=== PATIENT | female | born 1970 | race Caucasian/White ===

== ENCOUNTER 2016-05-02 16:36 | Emergency (ER) | payer OTHER ==
[~2016-05-02] VITALS: Ht 157.5 cm; Wt 75.0 kg
[2016-05-02 16:43] VITALS: Ht 157.5 cm; Wt 75.0 kg
[2016-05-02] MEDS ORDERED: ONDANSETRON (ODT) 4 MG TAB ODT STA (20:02)
[2016-05-02 20:27] LABS: URINE BLOOD (Dip) POC Negative (NEGATIVE)
[2016-05-02] MEDS ORDERED: FAMOTIDINE 20 MG TAB PO ONE (20:30)
[2016-05-02] MEDS ORDERED: HYDROCODONE/APAP (5/325) TAB PO ONE (20:30)
[2016-05-02 20:47] LABS: BASOPHILS % 0.3 % (0.0-2.0); EOSINOPHILS # 0.1 10^3/ul (0.0-0.5); EOSINOPHILS % 1.2 % (0.0-7.0); HEMATOCRIT 33.4 % (37.0-47.0); HEMOGLOBIN 11.1 g/dl (12.0-16.0); LYMPHOCYTES # 3.3 10^3/ul (0.8-2.9); LYMPHOCYTES % 27.7 % (15.0-51.0); MEAN CORPUSCULAR HEMOGLOBIN 27.6 pg (29.0-33.0); MEAN CORPUSCULAR HGB CONC 33.4 g/dl (32.0-37.0); MEAN CORPUSCULAR VOLUME 82.7 fl (82.0-101.0); MEAN PLATELET VOLUME 7.8 fl (7.4-10.4); MONOCYTE # 0.6 10^3/ul (0.3-0.9); MONOCYTES % 5.1 % (0.0-11.0); NEUTROPHIL # 7.9 10^3/ul (1.6-7.5); NEUTROPHILS % 65.7 % (39.0-77.0); PLATELET COUNT 306 10^3/UL (140-440); RED BLOOD COUNT 4.04 10^6/ul (4.20-5.40); RED CELL DISTRIBUTION WIDTH 13.5 % (11.5-14.5); UNCORRECTED WBC 11.9 10^3/ul (4.8-10.8); WHITE BLOOD COUNT 11.9 10^3/ul (4.8-10.8)
[2016-05-02 20:49] LABS: ALBUMIN 3.9 g/dl (3.3-4.9)
[2016-05-02 20:50] LABS: POTASSIUM 4.4 mmol/L (3.5-5.1)
[2016-05-02 20:52] LABS: ALBUMIN/GLOBULIN RATIO 1.14; BILIRUBIN,INDIRECT 0.1 mg/dl (0-1.1); BILIRUBIN,TOTAL 0.1 mg/dl (0.2-1.3); CREATININE 0.62 mg/dl (0.44-1.00); TOTAL PROTEIN 7.3 g/dl (6.1-8.1)
[2016-05-02 20:56] LABS: CONDITION 1
--- NOTE | 2016-05-02 21:02 | RADRPT ---
PROCEDURE: US Abdomen (right upper quadrant). CLINICAL INDICATION: Right upper quadrant abdomen pain. TECHNIQUE: Multiple real-time longitudinal and transverse images of the right upper quadrant of th e abdomen were acquired utilizing a curved array transducer. Images were reviewed on a high-resoluti on PACS workstation. COMPARISON: None FINDINGS: The liver is normal in size and echogenicity. There is no focal hepatic lesion. Color Doppler and pulsed Doppler sonography demonstrate normal a ntegrade flow in the portal vein. The gallbladder is normal with no stones or wall thickening. There is no pericholecystic fluid donato ection. The bile ducts are normal with the common bile duct measuring 3.4 mm in diameter. The visualized portions of the pancreas are unremarkable with obscuration of the tail of the pancrea s. No free fluid is present. The right kidney measures 10.4 cm. There is normal echogenicity of the right kidney. There is no perinephric fluid collection. No hydronephrosis, mass, or calculus is seen. IMPRESSION: 1. Unremarkable right upper quadrant abdomen ultrasound. RPTAT: QQ .Juni Bellamy MD, MD Date Time Electronically viewed and signed by .Juni Bellamy MD, on 05/02/2016 21:02 .R/
--- NOTE | 2016-05-02 22:37 | ERD ---
ER Documentation Chief Complaint Date/Time DATE: 05/02/16 TIME: 22:32 Chief Complaint ap with vomiting and diarrhea x 5 days HPI This is a 46-year-old female who presents to the emergency department today complaining of abdominal pain, vomiting and diarrhea for the past 5-7 days patient is also been complaining of headache and body aches. Denies any fevers or chills. ROS All systems reviewed and are negative except as per history of present illness. Medications Home Meds Active Scripts Loperamide Hcl* (Imodium*) 2 Mg Capsule, 2 MG PO .AFTER EA LOOSE BM Y for DIARRHEA, #10 TAB Prov:MIKI PHELPS PA-C 05/02/16 Ondansetron Hcl* (Zofran*) 4 Mg Tablet, 4 MG PO Q6H for NAUSEA AND/OR VOMITING, #30 TAB Prov:MIKI PHELPSC 05/02/16 Ibuprofen* (Motrin*) 600 Mg Tab, 600 MG PO Q6, #30 TAB Prov:MIKI PHELPSC 05/02/16 Hydrocodone/Acetaminophen ([place] 5-325 Tablet) 1 Each Tablet, 1 TAB PO Q6H Y for PAIN, #10 TAB Prov:MIKI PHELPS PA-C 05/02/16 Allergies Allergies: Coded Allergies: No Known Drug Allergy (Verified Allergy, Unknown, 07/27/07) PMhx/Soc Hx Alcohol Use: Yes Hx Substance Use: No Hx Tobacco Use: Yes Smoking Status: Current some day smoker Physical Exam Vitals Vital Signs Date Time Temp Pulse Resp B/P Pulse Ox O2 Delivery O2 Flow Rate FiO2 05/02/16 16:43 98.1 89 18 139/75 99 Physical Exam Const: No acute distress Head: Atraumatic Eyes: Normal Conjunctiva ENT: Normal External Ears, Nose and Mouth. Neck: Full range of motion..~ No meningismus. Resp: Clear to auscultation bilaterally Cardio: Regular rate and rhythm, no murmurs Abd: Soft, epigastric tenderness non distended. Normal bowel sounds. Right lower quadrant pain. No left lower quadrant pain. Skin: No petechiae or rashes Back: No midline or flank tenderness Ext: No cyanosis, or edema Neur: Awake and alert Psych: Normal Mood and Affect Result Diagram: 05/02/16201905/02/162019 Results 24 hrs Laboratory Tests Test 05/02/16 20:20 05/02/16 20:27 Alanine Aminotransferase (ALT/SGPT) 22IU/L Albumin 3.9g/dl Albumin/Globulin Ratio 1.14 Alkaline Phosphatase 75IU/L Anion Gap 16 Aspartate Amino Transf (AST/SGOT) 26IU/L Basophils # 0.010^3/ul Basophils % 0.3% Blood Morphology Comment Blood Urea Nitrogen 15mg/dl Calcium Level 9.0mg/dl Carbon Dioxide Level 21mmol/L Chloride Level 112mmol/L Creatinine 0.62mg/dl Direct Bilirubin 0.00mg/dl Eosinophils # 0.110^3/ul Eosinophils % 1.2% Globulin 3.40g/dl Glucose Level 101mg/dl Hematocrit 33.4% Hemoglobin 11.1g/dl Indirect Bilirubin 0.1mg/dl Lipase 104U/L Lymphocytes # 3.310^3/ul Lymphocytes % 27.7% Mean Corpuscular Hemoglobin 27.6pg Mean Corpuscular Hemoglobin Concent 33.4g/dl Mean Corpuscular Volume 82.7fl Mean Platelet Volume 7.8fl Monocytes # 0.610^3/ul Monocytes % 5.1% Neutrophils # 7.910^3/ul Neutrophils % 65.7% Nucleated Red Blood Cells # 0.010^3/ul Nucleated Red Blood Cells % 0.0/100WBC Platelet Count 97272^3/UL Potassium Level 4.4mmol/L Red Blood Count 4.0410^6/ul Red Cell Distribution Width 13.5% Sodium Level 145mmol/L Total Bilirubin 0.1mg/dl Total Protein 7.3g/dl White Blood Count 11.910^3/ul Bedside Urine Blood Negative Bedside Urine Glucose (UA) Negative Bedside Urine Ketones (LAB) Negative Bedside Urine Leukocyte Esterase (L Negative Bedside Urine Nitrite (LAB) Negative Bedside Urine Protein (LAB) Negative Bedside Urine pH (LAB) 5.0 Current Medications Medications (Trade) Dose Ordered Sig/Med Route PRN Reason Start Time Stop Time Status Last Admin Dose Admin Acetaminophen/ Hydrocodone Bitart ([place] (5/325)) 1 tab ONCE ONCE PO 05/02/16 20:30 05/02/16 20:31 DC 05/02/16 20:56 Famotidine (Pepcid) 20 mg ONCE ONCE PO 05/02/16 20:30 05/02/16 20:31 DC 05/02/16 20:56 Ondansetron HCl (Zofran Odt) 4 mg ONCE STAT ODT 05/02/16 20:02 05/02/16 20:04 DC 05/02/16 20:56 Patient: KAREN SIMPSON : 1970 Age: 46 Sex: F [id number]: 05/02/16 [facility] Ordering MD: MIKI PHELPS PA-C Location: [facility] Room/Bed: PROCEDURE: US Abdomen (right upper quadrant). CLINICAL INDICATION: Right upper quadrant abdomen pain. TECHNIQUE: Multiple real-time longitudinal and transverse images of the right upper quadrant of the abdomen were acquired utilizing a curved array transducer. Images were reviewed on a high-resolution PACS workstation. COMPARISON: None FINDINGS: The liver is normal in size and echogenicity. There is no focal hepatic lesion. Color Doppler and pulsed Doppler sonography demonstrate normal antegrade flow in the portal vein. The gallbladder is normal with no stones or wall thickening. There is no pericholecystic fluid collection. The bile ducts are normal with the common bile duct measuring 3.4 mm in diameter. The visualized portions of the pancreas are unremarkable with obscuration of the tail of the pancreas. No free fluid is present. The right kidney measures 10.4 cm. There is normal echogenicity of the right kidney. There is no perinephric fluid collection. No hydronephrosis, mass, or calculus is seen. IMPRESSION: 1. Unremarkable right upper quadrant abdomen ultrasound. RPTAT: QQ .Juni Bellamy MD, Date Time Electronically viewed and signed by .Juni Bellamy MD, on 05/02/2016 21:02 .R/ CC: MIKI PHELPS PA-C Procedures/MDM This is a 46-year-old female who presents to the emergency department today with multiple complaints. Patient did have some epigastric pain on physical exam therefore I did obtain laboratory work, UA and a right upper quadrant ultrasound. Laboratory work shows a mildly elevated white blood count. Her hemoglobin and hematocrit is mildly decreased. Platelets are within normal limits. Sodium and chloride are mildly elevated. Otherwise electro lites are within normal limits. Glucose is within normal limits. Liver function is within normal limits. Lipase is within normal limits. UA is negative for infection. test is negative. Patient has no lower abdominal pain of low suspicion for ectopic , tubo-ovarian abscess or ovarian torsion. Patient has no left lower quadrant pain and she is afebrile and otherwise well- appearing. Low suspicion for diverticulitis or low suspicion for any acute surgical abdomen. Right upper quadrant ultrasound is unremarkable. There is no free fluid. There is no pericholecystic fluid collection. Gallbladder is normal with no stones or wall thickening. Patient was given a prescription for Pepcid, [place] and Zofran. Patient was also complaining of diarrhea, headache and body aches and symptoms appear viral in nature. Patient will be given a prescription for [place], Motrin , Zofran and Imodium. At this time the patient is stable for discharge and outpatient management. Patient should follow up with their PCP in the next 1-2 days. They may return to the emergency department sooner for any persistent or worsening of symptoms. Patient understood and agreed with the plan. Departure Diagnosis: Primary Impression: Abdominal pain Abdominal location: epigastric Qualified Code: R10.13 - Epigastric pain Additional Impression: Viral syndrome Condition: MIKI Bryatn PA-C May 02, 2016 22:37
[2016-05-02] MEDS ORDERED: HYDR-906 PO (22:38)
[2016-05-02] MEDS ORDERED: ONDA4TAB8 PO (22:39)
[2016-05-02] MEDS ORDERED: IBUP-1542 PO (22:39)
[2016-05-02] MEDS ORDERED: LOPE2CAP PO (22:39)
[2016-05-02 22:57] VITALS: PULSE 86; RESP 22; TEMP 99
== END 2016-05-02 22:57 | disposition home or self-care (01) ==
LOC: FTE 16:36
DX: R10.13 Epigastric pain (principal); B34.9 Viral infection, unspecified; F17.210 Nicotine dependence, cigarettes, uncomplicated
CPT/HCPCS: 36415; 76705; 80053; 81003; 83690; 85025; Z7502; Z7610

== ENCOUNTER 2018-08-04 07:09 | Day surgery (SDC) | payer OTHER ==
[2018-08-04] VITALS (9 sets, daily range): BP systolic 101–122; BP diastolic 57–75; PULSE 61–92; RESP 13–19; Ht 157.5 cm; Wt 76.3 kg
[~2018-08-04] VITALS: Ht 157.5 cm; Wt 76.3 kg
[~2018-08-04 07:09] MED LIST: CEFAZOLIN 1 GM/50 ML (PMX) 50 ML IVPB ONE; HYDR-4011 PO; IBUP-1542 PO; LOPE2CAP PO; ONDA4TAB8 PO
--- NOTE | 2018-08-04 07:11 | PREAC ---
Date/Time of Note Date/Time of Note DATE: 08/04/18 TIME: 07:09 Anesthesia Eval and Record Evaluation Time Pre-Procedure Interview DATE: 08/04/18 TIME: 07:09 Age 48 Sex female NPO: 8 hrs Preoperative diagnosis cyst right foot Planned procedure excision right foot removal Past Medical History Past Medical History: Includes Cardio: Dyslipidemia Endo: Diabetes Surgery & Anesthesia Issues No known issue Meds Anticoagulation: No Beta Jordan within 24 hr: No Reason Beta Jordan not given: Pt. not on B-Jordan Active Scripts Loperamide Hcl* (Imodium*) 2 Mg Capsule, 2 MG PO .AFTER EA LOOSE BM PRN for DIARRHEA, #10 TAB Prov:MIKI PHELPS PA-C 05/02/16 Ondansetron Hcl* (Zofran*) 4 Mg Tablet, 4 MG PO Q6H for NAUSEA AND/OR VOMITING, #30 TAB Prov:MIKI PHELPS PA-C 05/02/16 Ibuprofen* (Motrin*) 600 Mg Tab, 600 MG PO Q6, #30 TAB Prov:MIKI PHELPS PA-C 05/02/16 Hydrocodone/Acetaminophen ([place] 5-325 Tablet) 1 Each Tablet, 1 TAB PO Q6H PRN f or PAIN, #10 TAB Prov:MIKI PHELPS PA-C 05/02/16 Reported Medications Simvastatin (Simvastatin) 20 Mg Tablet, 20 MG PO DAILY, #30 TAB 08/04/18 Metformin* (Glucophage*) 1,000 Mg Tablet, 1000 MG PO BID, #60 TAB 08/04/18 Naproxen* (Naproxen*) 375 Mg Tablet, 375 MG PO BID PRN for PAIN LEVEL 6-10, TAB 08/04/18 Current Medications Cefazolin Sodium 50 ml @ 100 mls/hr PRE-OP ONCE IVPB ; Start 08/04/18 at 07:00; Stop 08/04/18 at 07:29 Meds reviewed: Yes Allergies Coded Allergies: No Known Drug Allergy (Verified Allergy, Unknown, 07/27/07) Allergies Reviewed: Yes Labs/Studies Labs Reviewed: Reviewed by anesthesiologist test: Negative Pre-procedure Exam Airway: Adequate mouth opening, Adequate thyromental dist Mallampati: Mallampati II Teeth: Normal Lung: Normal Heart: Normal ASA Physical Status ASA physical status: 2 Emergency: None Planned Anesthetic General/MAC: MAC Planned Pain Management Parenteral pain med, Local by surgeon Pre-operative Attestations Prior to commencing anesthesia and surgery, the patient was re-evaluated, there was verification of: *The patient's identity *The results of appropriate recent lab work and preoperative vital signs *The above evaluation not changing prior to induction *Anesthetic plan, risk benefits, alternative and complications discussed with patient/family; questions answered; patient/family understands, accepts and wishes to proceed. YAJAIRA SIN PARTS PROCESSOR Aug 04, 2018 07:11
[2018-08-04] MEDS ORDERED: FENTAnyl 50 MCG/ML VIAL ONE (07:17)
--- NOTE | 2018-08-04 07:27 | HPN ---
Date/Time of Note Date/Time of Note DATE: 08/04/18 TIME: 07:27 Interval H&P Admission Note Pt. seen H&P reviewed: No system changes LATRICE COTTER DPM Aug 04, 2018 07:27
[2018-08-04] MEDS ORDERED: SIMV20TA2 PO (07:35)
[2018-08-04] MEDS ORDERED: NAPR-685 PO (07:35)
[2018-08-04] MEDS ORDERED: MTF1000T PO (07:35)
[2018-08-04] MEDS ORDERED: LIDOCAINE 1% (MPF) 30 ML INJ ONE (07:44)
[2018-08-04] MEDS ORDERED: LIDOCAINE 1% (MPF) 30 ML INJ INJ ONE (07:48)
[2018-08-04] MEDS ORDERED: MIDAZOLAM 1 MG/ML 2 ML INJ ONE (07:48)
[2018-08-04] MEDS ORDERED: LACTATED RINGER'S 1,000 ML IV SCH (08:00)
[2018-08-04] MEDS ORDERED: LIDOCAINE 2% (SDV) 5 ML INJ ONE (08:07)
[2018-08-04] MEDS ORDERED: CEFAZOLIN 1 GM INJ ONE (08:07)
[2018-08-04] MEDS ORDERED: PROPOFOL 20 ML ONE (08:07)
[2018-08-04] MEDS ORDERED: DEXAMETHASONE 4 MG/ML 1 ML INJ ONE (08:12)
[2018-08-04] MEDS ORDERED: BUPIVACAINE 0.5% (SDV) 30 ML INJ ONE (08:12)
[2018-08-04] MEDS ORDERED: KETOROLAC 30 MG INJ ONE (08:12)
[2018-08-04] MEDS ORDERED: DEXAMETHASONE 4 MG/ML 1 ML INJ INJ ONE (08:20)
[2018-08-04] MEDS ORDERED: BUPIVACAINE 0.5% 30 ML VIAL INJ ONE (08:20)
--- NOTE | 2018-08-04 08:22 | SIPON ---
Date/Time of Note Date/Time of Note DATE: 08/04/18 TIME: 08:20 Operative Report Preoperative Diagnosis cyst rt foot Postoperative Diagnosis same Operation/Procedure Performed excision of cyst rt foot Surgeon see signature line medical assisting instructor none Anesthesia: MAC Estimated blood loss: none Transfusion Required none Specimen none Grafts/Implants none Complications none LATRICE COTTER DPM Aug 04, 2018 08:22
--- NOTE | 2018-08-04 08:29 | PAC ---
Date/Time of Note Date/Time of Note DATE: 08/04/18 TIME: 08:28 Post-Anesthesia Notes Post-Anesthesia Note Activity: WNL Respiratory function: WNL Cardiovascular function: WNL Mental status: Baseline Pain reasonably controlled: Yes Hydration appropriate: Yes Nausea/Vomiting absent: Yes Comments 116/73 sp02 97% HR 82 RR 12 T 98.6F YAJAIRA SIN CRNA Aug 04, 2018 08:29
--- NOTE | 2018-08-04 13:03 | OPR ---
DATE OF OPERATION: 08/04/2018 SURGEON: Nohemy Marie DPM PREOPERATIVE DIAGNOSIS: Cyst dorsal aspect of right foot. POSTOPERATIVE DIAGNOSIS: Cyst dorsal aspect of right foot. PROCEDURE: Excision of cyst, right foot. DESCRIPTION OF PROCEDURE: The patient was brought to the OR and placed in the supine position on the operating room table. Anesthesia was achieved using MAC and local for a total of 10 mL of lidocaine 1% plain. The ankle was well wrapped several times with Webril and tourniquet was placed over the W ebril. The foot was then prepped and draped in the usual sterile fashion and then tourniquet was inf lated to 260 mmHg. Attention was then directed to the dorsal aspect of the right foot pain. A 2 cm linear incision was made dorsally. The incision was deepened in the same plane using sharp dissection. Vital structures were identified and retracted. A ganglionic cyst was observed and resected in total. The area was then flushed with normal saline and subcutaneous closure was obtained using 4-0 Vicryl and skin closu re using 4-0 nylon in a simple interrupted fashion. The surgical site was then infiltrated with 3 mL of 0.5% Marcaine plain and 1 mL of dexamethasone sodium phosphate. The surgical site was then cover ed with Adaptic, 4 x 4s and Kerlix in a compressive fashion. The tourniquet was then deflated and im mediate capillary refill was observed to all digits of the right foot. The patient tolerated anesthe joana and procedure well and left the OR for recovery room with vital signs stable and neurovascular st atus intact. Dictated By: NOHEMY RIOS/MONIQUE Conf#: [id number] DID#: [id number]
== END 2018-08-04 09:30 | disposition home or self-care (01) ==
LOC: SDS 07:09
PROVIDERS: ATTEND Podiatrist
DX: M67.471 Ganglion, right ankle and foot (principal); E78.5 Hyperlipidemia, unspecified; E11.9 Type 2 diabetes mellitus without complications; F17.210 Nicotine dependence, cigarettes, uncomplicated
CPT/HCPCS: 28090; 80048; 82962; 85025; 85610; 85730; J0690; J1100; J1885; J2250; J3010; Z7512; Z7610